=== PATIENT | female | born 1960 | race Caucasian/White ===

== ENCOUNTER 2023-05-12 20:28 | Emergency (ER) | payer BC ==
[2023-05-12] MEDS ORDERED: Boostrix 0.5 ML (Tdap) VIAL (>/=7 yrs of age) ONE (21:06)
[2023-05-12] MEDS ORDERED: Bacitracin 1 PK ONE (21:06)
[2023-05-12] MEDS ORDERED: Lidocaine 1% w/Epinephrine 1:100K 20 ML VIAL ONE (21:06)
[2023-05-12] MEDS ORDERED: Cephalexin 500 MG CAP ONE (22:01)
== END 2023-05-12 22:42 | disposition home or self-care (01) ==
LOC: MADERS 20:28
DX: S81.811A Laceration without foreign body, right lower leg, initial encounter (principal); S51.812A Laceration without foreign body of left forearm, initial encounter; K21.9 Gastro-esophageal reflux disease without esophagitis; I10 Essential (primary) hypertension; Z79.899 Other long term (current) drug therapy; W22.8XXA Striking against or struck by other objects, initial encounter
CPT/HCPCS: 12002; 90471; 90715